=== PATIENT | male | born 1985 | race Caucasian/White ===

== ENCOUNTER → 2017-07-13 | Outpatient (CLI) | payer OTHER | LOC: CIMAGING 07:20 | PROVIDERS: ATTEND Family Medicine | DX: E80.6 Other disorders of bilirubin metabolism (principal); R53.82 Chronic fatigue, unspecified | CPT/HCPCS: 76700-PO ==

== ENCOUNTER → 2018-09-23 | Outpatient (CLI) | payer OTHER ==
[~2018-09-23] MED LIST: GADOBUTROL 10 ML VIAL IVP ONE
== END ==
LOC: FIMAGING 14:16
PROVIDERS: ATTEND Psychiatry & Neurology Neurology
DX: R53.82 Chronic fatigue, unspecified (principal)
CPT/HCPCS: A9585